=== PATIENT | male | born 1990 | race Caucasian/White ===

== ENCOUNTER 2019-06-25 05:21 | Inpatient (IN) | payer MEDICAID ==
[~2019-06-25 05:21] MED LIST: Acetaminophen 500 MG Tab PO ONE; Celecoxib 200 MG Cap PO ONE; Gabapentin 300 MG Cap PO ONE
[2019-06-25] MEDS ORDERED: Scopolamine 1.5 MG Transdermal Patch TRDERM SCH (06:00)
[2019-06-25] MEDS ORDERED: Dextrose 5%-Lactated Ringers 1,000 ML IV SCH ×2 (06:00→11:45)
[2019-06-25] MEDS ORDERED: cefOXitin 2 GM Vial ONE (06:51)
[2019-06-25] MEDS ORDERED: cefOXitin 2 GM in Sodium Chloride 0.9% 50 ML IV ONE (07:00)
[2019-06-25] MEDS ORDERED: fentaNYL 250 MCG/5 ML SDV ONE ×2 (07:10→08:06)
[2019-06-25] MEDS ORDERED: Ondansetron 4 MG/2 ML SDV ONE (07:11)
[2019-06-25] MEDS ORDERED: Succinylcholine 200 MG/10 ML MDV ONE (07:11)
[2019-06-25] MEDS ORDERED: Dexamethasone 4 MG/ML SDV ONE (07:11)
[2019-06-25] MEDS ORDERED: Neostigmine Methylsulfate 1 MG/ML 5 ML Syringe ONE (07:11)
[2019-06-25] MEDS ORDERED: Propofol 200 MG/20 ML SDV ONE (07:11)
[2019-06-25] MEDS ORDERED: Glycopyrrolate 0.2 MG/ML 5 ML MDV ONE (07:11)
[2019-06-25] MEDS ORDERED: Rocuronium 50 MG/5 ML Vial ONE (07:11)
[2019-06-25] MEDS ORDERED: Lactated Ringers 1,000 ML ONE (07:16)
[2019-06-25] MEDS ORDERED: Ketamine 500 MG/5 ML MDV IV SCH (08:00)
[2019-06-25] MEDS ORDERED: Lidocaine 2% 100 MG/5 ML Syringe IVPUSH SCH (08:00)
[2019-06-25] MEDS ORDERED: Ketamine 50 MG in Sodium Chloride 0.9% 49.5 ML IV SCH (08:00)
[2019-06-25] MEDS ORDERED: Lidocaine 0.4%/D5W 2 GM/500 ML BAG IV SCH (08:00)
[2019-06-25 09:23] LABS: HEMOGLOBIN A1C 6.4 % (4.5-6.2)
[2019-06-25] MEDS ORDERED: hydrOXYzine HCl 100 MG/2 ML SDV IM ONE (10:13)
[2019-06-25] MEDS ORDERED: fentaNYL 100 MCG/2 ML SDV IVPUSH ONE ×2 (10:13→10:47)
[2019-06-25] MEDS ORDERED: HYDROmorphone 0.5 MG/0.5 ML Syringe IVPUSH PRN (11:44)
[2019-06-25] MEDS ORDERED: Ondansetron 4 MG/2 ML SDV IVPUSH PRN (11:50)
[2019-06-25] MEDS ORDERED: Metoclopramide 10 MG/2 ML SDV IVPUSH PRN (11:52)
[2019-06-25] MEDS ORDERED: Labetalol 20 MG/4 ML Syringe IVPUSH PRN (11:52)
[2019-06-25] MEDS ORDERED: hydrOXYzine HCl 100 MG/2 ML SDV IM PRN (11:52)
[2019-06-25] MEDS ORDERED: diphenhydrAMINE 50 MG/ML SDV IVPUSH PRN (11:52)
[2019-06-25] MEDS ORDERED: SCOPOLAMINE PATCH CHECK TOP SCH (11:52)
[2019-06-25] MEDS ORDERED: Insulin Lispro 100 Unit/ML 3 ML KwikPen SUBCUT PRN (11:53)
[2019-06-25] MEDS ORDERED: 50% Dextrose in Water 50 ML Syringe IVPUSH PRN (11:54)
[2019-06-25] MEDS ORDERED: Glucagon,Human Recombinant 1 MG Vial IM PRN (11:54)
[2019-06-25] MEDS: HYDROmorphone 1 MG/ML Syringe IV PRN ×2 (11:55→19:50)
[2019-06-25] MEDS ORDERED: Heparin Sodium 5,000 Units/ML Vial SUBCUT SCH (12:02)
[2019-06-25] MEDS: Lactated Ringers 1,000 ML IV SCH (13:02)
[2019-06-25] MEDS ORDERED: Pantoprazole 40 MG Vial IVPUSH SCH (14:00)
[2019-06-25] MEDS ORDERED: MVI, Adult with Vitamin K 10 ML, Thiamine 200 MG, Chromium/Copper/Mang/Selen/Zn 1 ML in... IV SCH ×4 (14:00)
[2019-06-25] MEDS: Acetaminophen 325 MG Tab PO SCH ×2 (14:55→19:50)
[2019-06-25] MEDS: Gabapentin 250 MG/5 ML Solution ML 470 ML Bottle PO SCH ×2 (14:56→20:02)
[2019-06-25] MEDS: cefOXitin 2 GM in Sodium Chloride 0.9% 50 ML IV SCH ×2 (14:57→19:50)
[2019-06-25] MEDS: Heparin Sodium 5,000 Units/ML Vial SUBCUT SCH ×2 (16:33→23:14)
[2019-06-26] MEDS: Lactated Ringers 1,000 ML IV SCH ×2 (00:04→12:24)
[2019-06-26] MEDS: cefOXitin 2 GM in Sodium Chloride 0.9% 50 ML IV SCH ×3 (02:12→14:21)
[2019-06-26] MEDS: Acetaminophen 325 MG Tab PO SCH ×4 (02:13→20:00)
[2019-06-26] MEDS ORDERED: Iopamidol 612 MG/ML 50 ML SDV PO STA (02:25)
[2019-06-26] MEDS: HYDROmorphone 1 MG/ML Syringe IV PRN (03:05)
--- NOTE | 2019-06-26 03:36 | CRLCR ---
INDICATION: Status post gastric sleeve surgery. Recheck. COMPARISON: None available. FINDINGS: Two erect films of the abdomen are obtained after swallowing a small amount of oral contrast. The immediate post swallowing study shows prompt passage of contrast from the gastric remnant into the nondistended small bowel. There is no sign of extravasation of contrast from the gastric remnant. A surgical drain is seen adjacent to the stomach. The delayed image shows prompt passage of contrast through the small bowel into the right upper pelvis. The small bowel and colon are nondistended. There is no sign of any extravasation of contrast from the gastric remnant. The osseous structures are normal in appearance for the patient`s age. The lung bases are clear. IMPRESSION: Prompt passage of oral contrast from the gastric remnant into the nondistended small bowel with prompt passage through the small bowel. No sign of any extravasation of contrast from the gastric remnant. Dictated by Genaro Hawthorne MD @ Jun 26 2019 3:32AM Signed by Dr. Genaro Hawthorne @ Jun 26 2019 3:34AM
[2019-06-26] MEDS ORDERED: HYDROmorphone 2 MG Tab PO PRN (08:09)
[2019-06-26] MEDS: Heparin Sodium 5,000 Units/ML Vial SUBCUT SCH ×2 (08:52→18:19)
[2019-06-26] MEDS: Gabapentin 250 MG/5 ML Solution ML 470 ML Bottle PO SCH ×3 (08:52→20:00)
[2019-06-26] MEDS: Losartan 50 MG Tab PO SCH (08:52)
[2019-06-26] MEDS: Aspirin 81 MG Tab.EC PO SCH (08:52)
[2019-06-26] MEDS: Celecoxib 200 MG Cap PO SCH (08:52)
--- NOTE | 2019-06-26 11:30 | PN ---
DATE OF SERVICE: 06/26/2019 The patient is postop day #1 from a laparoscopic sleeve gastrectomy. Clinically, he has done well overnight. Upper GI x-ray looks good. His oral intake has been fairly good. His blood sugars at highest are just above 200, so I think we will discontinue the Accu-Cheks at this point. Otherwise, we will go up to step-2 diet and maximize activity and work with pulmonary toilet. We will switch over to oral pain medicine exclusively at this point. Polo Guerrero MD /[id number]
[2019-06-26] MEDS ORDERED: Pantoprazole 40 MG Delayed-Release Granules 1 Packet PO SCH (16:00)
[2019-06-26] MEDS ORDERED: MVI, Adult with Vitamin K 10 ML, Thiamine 200 MG, Chromium/Copper/Mang/Selen/Zn 1 ML in... IV SCH ×4 (16:00)
[2019-06-27] MEDS: Heparin Sodium 5,000 Units/ML Vial SUBCUT SCH ×2 (00:37→08:32)
[2019-06-27] MEDS: Acetaminophen 325 MG Tab PO SCH ×2 (03:09→08:33)
[2019-06-27] MEDS: Celecoxib 200 MG Cap PO SCH (08:32)
[2019-06-27] MEDS: Aspirin 81 MG Tab.EC PO SCH (08:36)
[2019-06-27] MEDS: Losartan 50 MG Tab PO SCH (08:36)
[2019-06-27] MEDS: Gabapentin 250 MG/5 ML Solution ML 470 ML Bottle PO SCH (08:42)
[2019-06-27] MEDS ORDERED: Cyanocobalamin (Vitamin B12) 1,000 MCG/ML SDV IM ONE (09:00)
--- NOTE | 2019-06-27 09:34 | DISCH ---
ADMISSION DIAGNOSES: 1. Morbid obesity, body mass index 73.6. 2. Hyperlipidemia. 3. Obstructive sleep apnea. 4. Diabetes mellitus. DISCHARGE DIAGNOSES: Laparoscopic sleeve gastrectomy, liver biopsy for morbid obesity with extreme fatty infiltrate small bowel mesentery and marked hepatomegaly. Date of surgery: 06/25/2019. Surgeon: Polo Guerrero MD. HISTORY: Grant Arnold is a 28-year-old male with morbid obesity and increasing comorbidities. After preoperative evaluation and discussion of possible risks and possible complications, he wished to proceed with surgical procedure. HOSPITAL COURSE: Grant had his surgery on 06/25/2019. He had no operative complications. On postoperative day #1, his blood sugars were normal. Accu-Cheks were discontinued. He was started on a step 2 gastric bypass diet with no cereal. His activity was good. He received dietary instruction. On postoperative day #2, he was able to be discharged to home. Vital signs stable. Activity good. Oral intake adequate. Output adequate. He had 1 bowel movement. He did receive a vitamin B12 1000 mcg IM injection prior to discharge. Dietary instruction completed. PHYSICAL EXAMINATION: GENERAL: Grant is a 28-year-old male. VITAL SIGNS: Height is 6 feet 2 inches, weight is 573 pounds, BMI is 73.6. TPR is 97.2, 71, 22, blood pressure 132/61. HEENT: Negative. NECK: Supple. HEART: Regular rate and rhythm. LUNGS: Clear. ABDOMEN: Incisions look good. Abdominal binder is on. RODNEY drain is intact, but will be removed prior to discharge. EXTREMITIES: Without peripheral edema. With wearing his CPAP at night, he did require 1 to 1.5 L of oxygen into that CPAP. If oxygen was removed, his oximetry would be 81% to 82%. He will be evaluated for home O2 and go home with O2 to be piped into his CPAP at night. DISPOSITION: Discharged to home. CONDITION: Stable and improving. FOLLOWUP APPOINTMENTS: With Reema Gil PA-C, on 07/09/2019 at 10:00 a.m. at [facility]. HOME MEDICATIONS: 1. Tylenol 650 mg every 6 hours p.r.n. pain. 2. Aspirin 81 mg p.o. daily. 3. Celebrex 200 mg oral daily for 14 days. 4. Cozaar 50 mg oral daily. DIET: Step 2 gastric bypass diet until 07/26/2019, without cereal. He is to drink 8 to 10 glasses of water a day. ACTIVITY: No lifting greater than 10 pounds for 2 weeks. Walk 6 times daily inside your home. Driving; do not drive for 1 week. Shower/bathing; may shower. Notify provider if any fever, increased pain, swelling, redness, drainage, nausea, or vomiting. Keep site clean and dry. Wear abdominal binder for 2 weeks and then as tolerated. SPECIAL INSTRUCTIONS: Use incentive spirometer 10 times every hour while awake for 1 week. Keep a record of protein and liquid intake and bring to clinic appointments. Walk 10 minutes for every hour you are in the car, on your way home.
--- NOTE | 2019-07-09 08:16 | OR ---
DATE OF PROCEDURE: 06/25/2019 SURGEON: Polo Guerrero MD PREOPERATIVE DIAGNOSIS: Severe morbid obesity. POSTOPERATIVE DIAGNOSES: 1. Morbid obesity with extreme fatty infiltration of small bowel mesentery rendering it very immobile. 2. Marked hepatomegaly. OPERATIVE PROCEDURES: Diagnostic laparoscopy with: 1. Laparoscopic sleeve gastrectomy (09929). 2. Mendez-Cut needle liver biopsy ([id number]). ANESTHESIA: General. DEBEADER: Reema Gil PA-C. INDICATIONS FOR PROCEDURE: This is a 28-year-old male presenting with severe morbid obesity. He presently has a weight of 574 pounds with a BMI somewhere in the range of 74. The plan is to proceed with a laparoscopic Tomás-en-Y gastric bypass. He is aware that, because of his extreme obesity with a male habitus, the small bowel mesentery may be insufficiently mobile to allow either a gastric bypass or duodenal switch at this point, and we would need to revert to a sleeve gastrectomy with a planned staged procedure for a secondary Tomás-en-Y gastric bypass or duodenal switch after losing some weight over the ensuing months. Otherwise, potential risks of the procedure per se including bleeding, infection, leaks from various GI tract closures, problems with bowel obstruction over time, as well as possibility of cardiopulmonary, septic, or hemorrhagic complications leading to were all discussed, and the patient wishes to proceed. DETAILS OF PROCEDURE: The patient was taken to the operating room, and after general endotracheal anesthesia was induced, he was placed in a lithotomy position and the abdomen prepped and draped. At 15 cm inferior and 5 cm left of xiphoid process, a transverse incision was made and the peritoneal cavity entered under direct vision with an Optiview trocar, inflated to 15 mmHg pressure with CO2. The laparoscope was then reinserted. No underlying trocar site injuries were seen. Following this, bilateral transversus abdominis plane blocks were placed and 5 additional trocars were placed across the upper and mid abdomen. The patient initially was noted to have a quite striking hepatomegaly with the liver being fatty infiltrated. Mendez-Cut biopsies were then obtained from the left lobe of the liver. Minimal bleeding from the biopsy sites was controlled with electrocautery. At this point, the omentum was divided in the midline up to the level of the transverse colon. This allowed identification of the small bowel at the ligament of Treitz. The small bowel was then traced out 100 cm distal to that point, and at that point we made an assessment that the extreme fatty infiltration of the small bowel mesentery rendered it immobile to the extent that it was not reasonable to attempt to proceed with Tomás-en-Y gastric bypass or duodenal switch, and as discussed with the patient preoperatively, we then decided to proceed with a sleeve gastrectomy with an intention to perform a staged procedure somewhere in 3 to 6 months, converting him at that point either to a duodenal switch or a Tomás-en-Y gastric bypass, at which time the small bowel mesentery would be more mobile and amenable to those procedures. At this point, the greater omentum was divided away from the stomach, beginning in the mid greater curvature, and this dissection continued upward to the area of the esophagogastric junction. This included division of the short gastric vessels, as well as highest and posterior short gastric vessels. Even the exposure in this area was very difficult due to the extensive size of the omentum. The dissection then continued to a point distally to roughly 2 cm proximal to the pylorus. Some attachments posterior to the stomach were then divided with Harmonic scalpel as well. At that point, the initial three firings of the sleeve gastrectomy staple line were marked out, beginning 2 cm proximal to the pylorus and then extending underneath the incisura angularis with care taken to avoid overtightening of that area. The first three firings were with unreinforced ALBERTO black loads. Following this, a 32-Bengali suction tube was passed orally, positioned along the lesser curvature and then into the area of the antrum, pulled up against the wall of those structures and then placed on suction. The sleeve gastrectomy was then accomplished with reinforced black and purple loads up to and through the esophagogastric junction. The highest of the staple lines would be slightly toward the left to avoid stapling the esophagus itself. At that point, no further problems were noted. Fibrin sealant was placed along the staple line, focusing particularly in the area around the esophagogastric junction. The omentum was then tacked up with some 3-0 Vicryl stitch to cover up the staple line as well, and at that point, the suction tube, which had been placed off suction, was then injected with air to extend the remaining stomach with the pylorus being compressed. No bubbles or signs of leak were identified, and that tube was then removed. At this point, the gastric specimen was retrieved through the left lateral trocar site and a single Ravi-Guy drain was placed through the left lateral trocar site and positioned up against the area around the esophagogastric junction into the splenic fossa. The trocars were removed and the peritoneal cavity deflated. The incisions were closed with 4-0 Vicryl skin stitch and the drain affixed with 4-0 Vicryl stitch as well. The patient was taken to the recovery room in satisfactory condition. There were no evident complications. Physician housekeeping assistant, Reema Gil, played an essential role in assisting in this case, helping to position the patient, retracting structures as needed as well as suturing and cutting sutures when indicated. Her presence improved the patient safety and decreased the operative time. Polo Guerrero MD Job #: [id number]
== END 2019-06-27 10:00 | disposition home or self-care (01) | DRG 621 ==
LOC: JP.SDS 05:21 → JP.SDSSCHI 05:21 → EDSTATUS 07:15 → JP.MS 11:00
PROVIDERS: ADMIT Surgery; ATTEND Surgery
PROC: 0DB64Z3 Excision of Stomach, Percutaneous Endoscopic Approach, Vertical (ICD-10-PCS; principal; 2019-06-25)
PROC: 0FB24ZX Excision of Left Lobe Liver, Percutaneous Endoscopic Approach, Diagnostic (ICD-10-PCS; 2019-06-25)
DX: E66.01 Morbid (severe) obesity due to excess calories (principal); E78.5 Hyperlipidemia, unspecified; G47.33 Obstructive sleep apnea (adult) (pediatric); E11.9 Type 2 diabetes mellitus without complications; R16.0 Hepatomegaly, not elsewhere classified; I83.11 Varicose veins of right lower extremity with inflammation; I83.12 Varicose veins of left lower extremity with inflammation; I10 Essential (primary) hypertension; R94.5 Abnormal results of liver function studies; E55.9 Vitamin D deficiency, unspecified; E78.00 Pure hypercholesterolemia, unspecified; R79.82 Elevated C-reactive protein (CRP); Z99.81 Dependence on supplemental oxygen; Z68.45 Body mass index [BMI] 70 or greater, adult; Z79.82 Long term (current) use of aspirin; Z79.899 Other long term (current) drug therapy; Z87.891 Personal history of nicotine dependence
CPT/HCPCS: 36415; 74240; 80053; 82550; 82962; 83036; 83735; 83880; 84100; 85025; 86850; 86900; 86901; 88307; 88313; 94762; A9270-GY; C9113; J0171; J0330; J0694; J1100; J1170; J1644; J1815; J1815-GY; J2001; J2405; J2704; J2710; J2795; J3010; J3410; J3411; J3420; J3490; J7030; J7042; J7050; J7120; Q9967